=== PATIENT | male | born 1935 | race Caucasian/White ===

== ENCOUNTER 2024-09-09 11:45 | Outpatient (CLI) | payer MEDICARE, BC | END 2024-09-12 13:15 | disposition home or self-care (01) | LOC: PET 11:45 | PROVIDERS: ATTEND Urology | DX: C61 Malignant neoplasm of prostate (principal); R91.1 Solitary pulmonary nodule | CPT/HCPCS: 78815; A9552; A9595 ==

== ENCOUNTER 2024-12-01 13:53 | Outpatient (CLI) | payer MEDICARE, BC | END 2024-12-01 13:54 | disposition home or self-care (01) | LOC: BICRAD 13:53 | PROVIDERS: ATTEND Urology | DX: C61 Malignant neoplasm of prostate (principal) ==